=== PATIENT | male | born 1945 | race Caucasian/White ===

== ENCOUNTER 2019-01-07 11:10 | Inpatient (IN) | payer MEDICARE, OTHER ==
[~2019-01-07 11:10] MED LIST: LIDOCAINE 2% (SDV) 5 ML INJ
[2019-01-07 11:20] LABS: ADD MAN DIFF? NO
[2019-01-07 11:22] LABS: WHITE BLOOD COUNT 15.2 10^3/ul (4.8-10.8)
[2019-01-07 11:22] LABS: BASOPHIL # 0.1 10^3/ul (0.0-0.1); BASOPHILS % 0.4 % (0.0-2.0); EOSINOPHILS % 0.2 % (0.0-7.0); HEMATOCRIT 38.5 % (42.0-52.0); HEMOGLOBIN 12.3 g/dl (14.0-18.0); LYMPHOCYTES # 2.1 10^3/ul (0.8-2.9); LYMPHOCYTES % 13.8 % (15.0-51.0); MEAN CORPUSCULAR HEMOGLOBIN 28.8 pg (29.0-33.0); MEAN CORPUSCULAR HGB CONC 31.9 g/dl (32.0-37.0); MEAN CORPUSCULAR VOLUME 90.2 fl (82.0-101.0); MEAN PLATELET VOLUME 9.6 fl (7.4-10.4); MONOCYTE # 0.9 10^3/ul (0.3-0.9); NEUTROPHILS % 78.9 % (39.0-77.0); PLATELET COUNT 347 10^3/UL (140-415); RED BLOOD COUNT 4.27 10^6/ul (4.70-6.10); RED CELL DISTRIBUTION WIDTH 13.3 % (11.5-14.5)
[2019-01-07 11:38] LABS: HEMOGLOBIN A1C 5.7 % (0-5.9)
[2019-01-07 11:40] LABS: ANION GAP 13 (5-13); BLOOD UREA NITROGEN 23 mg/dl (7-20); CALCIUM 9.8 mg/dl (8.4-10.2); CARBON DIOXIDE 26 mmol/L (21-31); CHLORIDE 104 mmol/L (97-110); CHOL/HDL RATIO 4.7 RATIO; CHOLESTEROL 193 mg/dl (100-200); CREATINE KINASE 144 IU/L (23-200); CREATININE 1.19 mg/dl (0.61-1.24); GLUCOSE 192 mg/dl (70-220); HDL CHOLESTEROL 41 mg/dl (31-75); LDL CHOLESTEROL,CALCULATED 118 mg/dl; POTASSIUM 3.4 mmol/L (3.5-5.1); SODIUM 143 mmol/L (135-144); TRIGLYCERIDES 170 mg/dl (0-149)
[2019-01-07 11:41] LABS: ETHANOL < 10.0 mg/dl (0-0)
[2019-01-07 11:45] LABS: INR 0.96; PROTIME 12.9 Sec (11.9-14.9)
[2019-01-07 11:46] LABS: PARTIAL THROMBOPLASTIN TIME 23.3 Sec (23.0-35.0)
[2019-01-07 11:52] LABS: CK INDEX 0.5; CK-MB 0.74 ng/ml (0.0-2.4); TROPONIN-I < 0.012 ng/ml (0.000-0.120)
[2019-01-07 12:20] LABS: ADD UMIC NO; UR ASCORBIC ACID NEGATIVE (NEGATIVE); UR BILIRUBIN (Dip) NEGATIVE (NEGATIVE); UR BLOOD (Dip) NEGATIVE (NEGATIVE); UR CLARITY CLEAR (CLEAR); UR COLOR STRAW (YELLOW); UR GLUCOSE (Dip) 2+ mg/dL (NEGATIVE); UR KETONES (Dip) NEGATIVE (NEGATIVE); UR LEUKOCYTE ESTERASE (Dip) NEGATIVE Leu/ul (NEGATIVE); UR NITRITE (Dip) NEGATIVE (NEGATIVE); UR SPECIFIC GRAVITY (Dip) 1.014 (1.003-1.030); UR TOTAL PROTEIN (Dip) NEGATIVE (NEGATIVE); UR UROBILINOGEN (Dip) NEGATIVE (NEGATIVE)
[2019-01-07] MEDS ORDERED: SUCCINYLCHOLINE CHLORIDE 100 MG/5 ML SYG IV (12:23)
[2019-01-07] MEDS ORDERED: ETOMIDATE 20 MG INJ IV (12:23)
[2019-01-07] MEDS: niCARdipine-NS 0.1MG/ML DRIP 200 ML IV (12:33)
[2019-01-07] MEDS: DESMOPRESSIN 22.5 MCG in SOD CHLORIDE 0.9% 50 ML IVPB (13:00)
[2019-01-07] MEDS ORDERED: NACL 0.9% 3 ML SYG IV (13:00)
[2019-01-07] MEDS ORDERED: HYDROmorphONE 0.5 MG/0.5 ML SYG IV ×4 (13:00→17:30)
[2019-01-07] MEDS: HYDROmorphONE 1 MG/ML SYG IV ×2 (13:04→18:24)
[2019-01-07] MEDS: MANNITOL 25% 50 ML INJ IV* (13:14)
[2019-01-07 13:33] LABS: AMPHETAMINE/METHAMPHETAMINE Negative (NEGATIVE); BARBITURATES Negative (NEGATIVE); BENZODIAZEPINES Negative (NEGATIVE); CANNABINOIDS Negative (NEGATIVE); COCAINE Negative (NEGATIVE); OPIATES Negative (NEGATIVE)
[2019-01-07 14:30] LABS: TYPE AND SCREEN 1
[2019-01-07] MEDS ORDERED: LORAZEPAM 2 MG INJ IV ×2 (15:30→17:30)
[2019-01-07] MEDS: LIDOCAINE 1% (MPF) 30 ML INJ (15:46)
[2019-01-07] MEDS: THROMBIN (BOVINE) 5,000 UNIT VIAL TP ×4 (15:46→16:51)
[2019-01-07] MEDS: POLYMYXIN/BACITRACIN 1L IRRIG (15:47)
[2019-01-07] MEDS: BUPIVACAINE 0.5%/EPI (SDV) 30 ML INJ (15:47)
[2019-01-07] MEDS: GELATIN SIZE 100 SPONGE ×2 (15:47→16:40)
[2019-01-07] MEDS: LIDOCAINE 1%/EPI 30 ML INJ INJ (15:54)
[2019-01-07] MEDS ORDERED: CA CHLORIDE 10% 10 ML SYRINGE (16:15)
[2019-01-07] MEDS ORDERED: ROCURONIUM 50 MG INJ (16:15)
[2019-01-07] MEDS ORDERED: PROPOFOL 40 ML (16:15)
[2019-01-07] MEDS ORDERED: PROPOFOL 100 ML (16:15)
[2019-01-07] MEDS ORDERED: ALBUMIN HUMAN 25% 200 ML (16:15)
[2019-01-07] MEDS ORDERED: CA CHLORIDE (GM) 10% 10 ML INJ (16:15)
[2019-01-07] MEDS ORDERED: PHENYLephrine (100 MCG/ML) 5ML SYG (16:21)
[2019-01-07] MEDS: BACITRACIN/POLYMYXIN 28.35 GM OINT TOP (17:26)
[2019-01-07] MEDS ORDERED: DIPHENHYDRAMINE 50 MG INJ IV (17:30)
[2019-01-07] MEDS ORDERED: ONDANSETRON 4 MG INJ IV ×2 (17:30→18:00)
[2019-01-07] MEDS ORDERED: FENTAnyl 50 MCG/ML VIAL IV ×2 (17:30)
[2019-01-07] MEDS ORDERED: METOCLOPRAMIDE 10 MG INJ IV (17:30)
[2019-01-07] MEDS ORDERED: MIDAZOLAM 1 MG/ML 2 ML INJ IV (17:30)
[2019-01-07] MEDS ORDERED: IPRATROPIUM (NEB) 0.5 MG/2.5 ML AMP HHN (17:30)
[2019-01-07] MEDS ORDERED: LEVALBUTEROL (NEB) 1.25 MG/0.5 ML AMP HHN (17:30)
[2019-01-07] MEDS ORDERED: NALOXONE (0.4 MG/ML) INJ IV (18:00)
[2019-01-07] MEDS: hydrALAzine 20 MG INJ IV (18:37)
[2019-01-07] MEDS: LABETALOL HCL 20MG INJ IV ×2 (18:44→19:01)
[2019-01-07] MEDS: CEFAZOLIN 1 GM/50 ML (PMX) 50 ML IVPB (18:58)
[2019-01-07] MEDS: PROPOFOL 100 ML IV ×2 (19:02→20:03)
[2019-01-07 19:41] LABS: AADO2 Arterial 288.1 mmHg (7.0-24.0); Arterial Base Excess -4.5 mmol/L (-3.0-3); Arterial Blood Gas Oxygen Sat 98.5 mmHG (95.0-100.0); Arterial COHb 0.2 % (0.0-3.0); Arterial Fraction of Oxyhgb 97.8 % (93.0-99.0); Arterial HCO3 21.2 mmol/L (22.0-26.0); Arterial MetHb 0.5 % (0.0-1.5); Arterial pCO2 41.4 mmhg (35-45); MODE VENT - AC; Site A-Line
[2019-01-07] MEDS: LEVETIRACETAM 500 MG (PMX) 100 ML IVPB ×2 (19:57→23:00)
[2019-01-07] MEDS: NS + KCL 20 MEQ 1,000 ML IV (21:24)
[2019-01-07] MEDS: niCARdipine 25 MG in SOD CHLORIDE 0.9% 240 ML IV (21:25)
[2019-01-07 21:55] LABS: ANION GAP 13 (5-13); BLOOD UREA NITROGEN 21 mg/dl (7-20); CALCIUM 10.3 mg/dl (8.4-10.2); CARBON DIOXIDE 22 mmol/L (21-31); CHLORIDE 109 mmol/L (97-110); CREATININE 1.29 mg/dl (0.61-1.24); GLUCOSE 124 mg/dl (70-220); POTASSIUM 4.2 mmol/L (3.5-5.1); SODIUM 144 mmol/L (135-144)
[2019-01-07] MEDS: NACL 3% 500 ML IV (22:07)
[2019-01-07] MEDS: FENTAnyl (DRIP) 1000 mcg/100mL 100 ML IV (22:09)
[2019-01-07] MEDS: NEOMYC/POLYMYX/BACIT 30 GM OINT TOP (22:09)
[2019-01-07 22:37] LABS: AADO2 Arterial 199.8 mmHg (7.0-24.0); Arterial Base Excess -2.8 mmol/L (-3.0-3); Arterial Blood Gas Oxygen Sat 97.9 mmHG (95.0-100.0); Arterial COHb 0.3 % (0.0-3.0); Arterial Fraction of Oxyhgb 97.1 % (93.0-99.0); Arterial HCO3 20.6 mmol/L (22.0-26.0); Arterial MetHb 0.5 % (0.0-1.5); Arterial pCO2 30.5 mmhg (35-45); MODE VENT - AC; Site A-Line
[2019-01-08] MEDS: niCARdipine 50 MG in SOD CHLORIDE 0.9% 480 ML IV (00:29)
[2019-01-08] MEDS: PROPOFOL 100 ML IV ×3 (02:24→16:41)
[2019-01-08] MEDS: CEFAZOLIN 1 GM/50 ML (PMX) 50 ML IVPB ×2 (02:24→08:39)
[2019-01-08 04:47] LABS: ABNORMAL IP MESSAGE 1; HEMATOCRIT 22.5 % (42.0-52.0); HEMOGLOBIN 7.5 g/dl (14.0-18.0); MEAN CORPUSCULAR HEMOGLOBIN 29.3 pg (29.0-33.0); MEAN CORPUSCULAR HGB CONC 33.3 g/dl (32.0-37.0); MEAN CORPUSCULAR VOLUME 87.9 fl (82.0-101.0); MEAN PLATELET VOLUME 10.2 fl (7.4-10.4); PLATELET COUNT 215 10^3/UL (140-415); POSITIVE DIFF @See below; RED BLOOD COUNT 2.56 10^6/ul (4.70-6.10); RED CELL DISTRIBUTION WIDTH 13.7 % (11.5-14.5)
[2019-01-08 04:47] LABS: WHITE BLOOD COUNT 7.1 10^3/ul (4.8-10.8)
[2019-01-08 04:50] LABS: ADD MAN DIFF? YES
[2019-01-08 04:58] LABS: HEMOGLOBIN A1C 5.9 % (0-5.9)
[2019-01-08 05:12] LABS: ALANINE AMINOTRANSFERASE 19 IU/L (13-69); ALBUMIN 3.7 g/dl (3.3-4.9); ALBUMIN/GLOBULIN RATIO 1.54; ALKALINE PHOSPHATASE 34 IU/L (42-121); ANION GAP 13 (5-13); ASPARTATE AMINO TRANSFERASE 27 IU/L (15-46); BILIRUBIN,INDIRECT 0.2 mg/dl (0-1.1); BILIRUBIN,TOTAL 0.2 mg/dl (0.2-1.3); BLOOD UREA NITROGEN 20 mg/dl (7-20); CALCIUM 9.9 mg/dl (8.4-10.2); CARBON DIOXIDE 22 mmol/L (21-31); CHLORIDE 114 mmol/L (97-110); CREATININE 1.45 mg/dl (0.61-1.24); GLUCOSE 116 mg/dl (70-220); POTASSIUM 3.7 mmol/L (3.5-5.1); SODIUM 149 mmol/L (135-144); TOTAL PROTEIN 6.1 g/dl (6.1-8.1)
[2019-01-08] MEDS: PANTOPRAZOLE 40 MG INJ IV (05:31)
[2019-01-08 05:43] LABS: ADD MAN DIFF? NO
[2019-01-08 05:57] LABS: ABNORMAL IP MESSAGE 1; BASOPHILS % 0.2 % (0.0-2.0); HEMATOCRIT 22.6 % (42.0-52.0); HEMOGLOBIN 7.4 g/dl (14.0-18.0); LYMPHOCYTES # 0.4 10^3/ul (0.8-2.9); LYMPHOCYTES % 6.5 % (15.0-51.0); MEAN CORPUSCULAR HEMOGLOBIN 29.1 pg (29.0-33.0); MEAN CORPUSCULAR HGB CONC 32.7 g/dl (32.0-37.0); MEAN PLATELET VOLUME 10.1 fl (7.4-10.4); MONOCYTE # 0.4 10^3/ul (0.3-0.9); MONOCYTES % 5.3 % (0.0-11.0); NEUTROPHIL # 5.8 10^3/ul (1.6-7.5); NEUTROPHILS % 87.5 % (39.0-77.0); PLATELET COUNT 207 10^3/UL (140-415); POSITIVE DIFF @See below; RED BLOOD COUNT 2.54 10^6/ul (4.70-6.10); RED CELL DISTRIBUTION WIDTH 13.7 % (11.5-14.5)
[2019-01-08 05:57] LABS: WHITE BLOOD COUNT 6.7 10^3/ul (4.8-10.8)
[2019-01-08 06:53] LABS: IMMEDIATE SPIN CROSSMATCH 1 2
[2019-01-08 08:23] LABS: ACANTHOCYTES 1+ (0-0); ANISOCYTOSIS 1+ (0-0); BAND NEUTROPHILS #M 2.3 10^3/ul (0.0-0.6); BAND NEUTROPHILS % (M) 33 % (0-4); BURR CELLS 1+ (0-0); LYMPHOCYTES #M 0.4 10^3/ul (0.8-2.9); LYMPHOCYTES % (M) 6 % (15-51); MICROCYTOSIS 1+ (0-0); MONOCYTE #M 0.2 10^3/ul (0.3-0.9); MONOCYTES % (M) 3 % (0-11); OVALOCYTES 1+ (0-0); PLATELET ESTIMATE NORMAL; POIKILOCYTOSIS 1+ (0-0); REACTIVE LYMPHOCYTES% (M) 1 % (0-0); SCHISTOCYTES 1+ (0-0); SEG NEUT #M 4.2 10^3/ul (1.6-7.5); SEGMENTED NEUTROPHILS (M) % 57 % (39-77); SMUDGE%M 1 % (0-0)
[2019-01-08 08:30] LABS: ANISOCYTOSIS 2+ (0-0); BAND NEUTROPHILS #M 2.1 10^3/ul (0.0-0.6); BAND NEUTROPHILS % (M) 32 % (0-4); BASOPHILS % (M) 1 % (0-2); EOSINOPHILS % (M) 1 % (0-7); LYMPHOCYTES #M 0.1 10^3/ul (0.8-2.9); LYMPHOCYTES % (M) 2 % (15-51); MICROCYTOSIS 2+ (0-0); MONOCYTES % (M) 1 % (0-11); OVALOCYTES 1+ (0-0); PLATELET ESTIMATE NORMAL; POIKILOCYTOSIS 1+ (0-0); SEG NEUT #M 4.4 10^3/ul (1.6-7.5); SEGMENTED NEUTROPHILS (M) % 63 % (39-77); SMUDGE%M 5 % (0-0)
[2019-01-08] MEDS: NEOMYC/POLYMYX/BACIT 30 GM OINT TOP ×2 (08:31→20:52)
[2019-01-08] MEDS: HYDROmorphONE 0.5 MG/0.5 ML SYG IV ×2 (08:45→15:44)
[2019-01-08] MEDS: LEVETIRACETAM 500 MG (PMX) 100 ML IVPB ×2 (09:00→20:52)
[2019-01-08 14:23] LABS: HEMATOCRIT 29.2 % (42.0-52.0); HEMOGLOBIN 9.8 g/dl (14.0-18.0); MEAN CORPUSCULAR HEMOGLOBIN 29.1 pg (29.0-33.0); MEAN CORPUSCULAR HGB CONC 33.6 g/dl (32.0-37.0); MEAN CORPUSCULAR VOLUME 86.6 fl (82.0-101.0); MEAN PLATELET VOLUME 10.5 fl (7.4-10.4); PLATELET COUNT 181 10^3/UL (140-415); POSITIVE DIFF @See below; RED BLOOD COUNT 3.37 10^6/ul (4.70-6.10); RED CELL DISTRIBUTION WIDTH 15.2 % (11.5-14.5)
[2019-01-08 14:23] LABS: WHITE BLOOD COUNT 5.9 10^3/ul (4.8-10.8)
[2019-01-08 14:25] LABS: ADD MAN DIFF? YES
[2019-01-08] MEDS: NS + KCL 20 MEQ 1,000 ML IV ×2 (14:28→20:51)
[2019-01-08 14:38] LABS: SODIUM 149 mmol/L (135-144)
[2019-01-08 15:31] LABS: ANISOCYTOSIS 2+ (0-0); BAND NEUTROPHILS % (M) 17 % (0-4); GIANT THROMBO% (M) 1 % (0-0); LYMPHOCYTES #M 0.7 10^3/ul (0.8-2.9); LYMPHOCYTES % (M) 13 % (15-51); MICROCYTOSIS 2+ (0-0); MONOCYTE #M 0.1 10^3/ul (0.3-0.9); MONOCYTES % (M) 2 % (0-11); PLATELET ESTIMATE NORMAL; POIKILOCYTOSIS 1+ (0-0); SEG NEUT #M 4.1 10^3/ul (1.6-7.5); SEGMENTED NEUTROPHILS (M) % 68 % (39-77); SMUDGE%M 6 % (0-0)
[2019-01-08] MEDS: hydrALAzine 20 MG INJ IV (17:24)
[2019-01-08 18:12] LABS: SODIUM 146 mmol/L (135-144)
[2019-01-08] MEDS: ACETAMINOPHEN 650MG/20.3ML CUP NGT (21:19)
[2019-01-08] MEDS: FENTAnyl (DRIP) 1000 mcg/100mL 100 ML IV (23:00)
[2019-01-09 00:35] LABS: SODIUM 146 mmol/L (135-144)
[2019-01-09 04:48] LABS: ADD MAN DIFF? NO
[2019-01-09 04:53] LABS: BASOPHILS % 0.3 % (0.0-2.0); EOSINOPHILS % 0.3 % (0.0-7.0); HEMATOCRIT 28.5 % (42.0-52.0); HEMOGLOBIN 9.4 g/dl (14.0-18.0); LYMPHOCYTES # 1.1 10^3/ul (0.8-2.9); LYMPHOCYTES % 17.8 % (15.0-51.0); MEAN CORPUSCULAR HEMOGLOBIN 28.6 pg (29.0-33.0); MEAN CORPUSCULAR VOLUME 86.6 fl (82.0-101.0); MEAN PLATELET VOLUME 10.3 fl (7.4-10.4); MONOCYTE # 0.5 10^3/ul (0.3-0.9); MONOCYTES % 7.8 % (0.0-11.0); NEUTROPHIL # 4.5 10^3/ul (1.6-7.5); PLATELET COUNT 170 10^3/UL (140-415); RED BLOOD COUNT 3.29 10^6/ul (4.70-6.10); RED CELL DISTRIBUTION WIDTH 15.3 % (11.5-14.5)
[2019-01-09 04:53] LABS: WHITE BLOOD COUNT 6.1 10^3/ul (4.8-10.8)
[2019-01-09 05:22] LABS: ANION GAP 9 (5-13); BLOOD UREA NITROGEN 21 mg/dl (7-20); CALCIUM 9.1 mg/dl (8.4-10.2); CARBON DIOXIDE 20 mmol/L (21-31); CHLORIDE 118 mmol/L (97-110); CREATININE 1.26 mg/dl (0.61-1.24); GLUCOSE 135 mg/dl (70-220); PHOSPHORUS 1.9 mg/dl (2.5-4.9); POTASSIUM 3.4 mmol/L (3.5-5.1); SODIUM 147 mmol/L (135-144)
[2019-01-09] MEDS: PANTOPRAZOLE 40 MG INJ IV (05:55)
[2019-01-09] MEDS: PROPOFOL 100 ML IV ×3 (05:55→21:27)
[2019-01-09] MEDS: NS + KCL 20 MEQ 1,000 ML IV ×2 (06:30→20:20)
[2019-01-09 08:31] LABS: Arterial Base Excess -2.6 mmol/L (-3.0-3); Arterial Blood Gas Oxygen Sat 98.3 mmHG (95.0-100.0); Arterial COHb 0.2 % (0.0-3.0); Arterial Fraction of Oxyhgb 97.8 % (93.0-99.0); Arterial HCO3 19.5 mmol/L (22.0-26.0); Arterial MetHb 0.3 % (0.0-1.5); Arterial pCO2 25.5 mmhg (35-45); MODE VENT - AC; Site A-Line
[2019-01-09] MEDS: LEVETIRACETAM 500 MG (PMX) 100 ML IVPB ×2 (09:32→20:20)
[2019-01-09] MEDS: NEOMYC/POLYMYX/BACIT 30 GM OINT TOP ×2 (09:32→20:20)
[2019-01-09] MEDS: POTASSIUM PHOSPHATE 20 MEQ in SOD CHLORIDE 0.9% 250 ML IVPB (11:35)
[2019-01-09] MEDS: HYDROmorphONE 0.5 MG/0.5 ML SYG IV ×2 (12:14→21:24)
[2019-01-09 12:43] LABS: SODIUM 147 mmol/L (135-144)
[2019-01-09] MEDS: HYDROCODONE/APAP (5/325) TAB PO (16:14)
[2019-01-09] MEDS: FENTAnyl (DRIP) 1000 mcg/100mL 100 ML IV (19:13)
[2019-01-09 19:40] LABS: SODIUM 146 mmol/L (135-144)
[2019-01-10] MEDS: HYDROCODONE/APAP (5/325) TAB PO ×2 (01:02→18:06)
[2019-01-10] MEDS: PROPOFOL 100 ML IV ×4 (02:56→22:45)
[2019-01-10 04:52] LABS: ADD MAN DIFF? NO
[2019-01-10 05:01] LABS: BASOPHILS % 0.3 % (0.0-2.0); EOSINOPHILS # 0.1 10^3/ul (0.0-0.5); EOSINOPHILS % 1.5 % (0.0-7.0); HEMATOCRIT 27.2 % (42.0-52.0); LYMPHOCYTES # 1.3 10^3/ul (0.8-2.9); LYMPHOCYTES % 22.1 % (15.0-51.0); MEAN CORPUSCULAR HEMOGLOBIN 28.8 pg (29.0-33.0); MEAN CORPUSCULAR HGB CONC 33.1 g/dl (32.0-37.0); MEAN CORPUSCULAR VOLUME 87.2 fl (82.0-101.0); MEAN PLATELET VOLUME 10.6 fl (7.4-10.4); MONOCYTE # 0.4 10^3/ul (0.3-0.9); MONOCYTES % 6.1 % (0.0-11.0); NEUTROPHIL # 4.1 10^3/ul (1.6-7.5); NEUTROPHILS % 69.7 % (39.0-77.0); PLATELET COUNT 171 10^3/UL (140-415); RED BLOOD COUNT 3.12 10^6/ul (4.70-6.10); RED CELL DISTRIBUTION WIDTH 15.3 % (11.5-14.5)
[2019-01-10 05:01] LABS: WHITE BLOOD COUNT 5.9 10^3/ul (4.8-10.8)
[2019-01-10] MEDS: PANTOPRAZOLE 40 MG INJ IV (05:01)
[2019-01-10] MEDS: NS + KCL 20 MEQ 1,000 ML IV ×3 (05:01→21:31)
[2019-01-10 05:32] LABS: ANION GAP 10 (5-13); BLOOD UREA NITROGEN 19 mg/dl (7-20); CALCIUM 8.7 mg/dl (8.4-10.2); CARBON DIOXIDE 20 mmol/L (21-31); CHLORIDE 117 mmol/L (97-110); CREATININE 1.02 mg/dl (0.61-1.24); GLUCOSE 141 mg/dl (70-220); POTASSIUM 3.6 mmol/L (3.5-5.1); SODIUM 147 mmol/L (135-144)
[2019-01-10 08:03] LABS: AADO2 Arterial 80.6 mmHg (7.0-24.0); Arterial Base Excess -3.6 mmol/L (-3.0-3); Arterial Blood Gas Oxygen Sat 97.3 mmHG (95.0-100.0); Arterial COHb 0.2 % (0.0-3.0); Arterial Fraction of Oxyhgb 96.8 % (93.0-99.0); Arterial HCO3 18.9 mmol/L (22.0-26.0); Arterial MetHb 0.3 % (0.0-1.5); Arterial pCO2 25.7 mmhg (35-45); MODE VENT - AC; Site A-Line
[2019-01-10] MEDS: LEVETIRACETAM 500 MG (PMX) 100 ML IVPB ×2 (09:16→21:14)
[2019-01-10] MEDS: NEOMYC/POLYMYX/BACIT 30 GM OINT TOP ×2 (09:16→21:14)
[2019-01-10] MEDS: HYDROmorphONE 0.5 MG/0.5 ML SYG IV ×2 (13:30→22:38)
[2019-01-10] MEDS: FENTAnyl (DRIP) 1000 mcg/100mL 100 ML IV (14:42)
[2019-01-10] MEDS: ACETAMINOPHEN 650MG/20.3ML CUP NGT (19:32)
[2019-01-11] MEDS: HYDROCODONE/APAP (5/325) TAB PO (00:47)
[2019-01-11] MEDS: HYDROmorphONE 0.5 MG/0.5 ML SYG IV ×3 (00:48→02:55)
[2019-01-11] MEDS: niCARdipine 50 MG in SOD CHLORIDE 0.9% 480 ML IV (00:54)
[2019-01-11] MEDS: PROPOFOL 100 ML IV ×2 (03:20→13:55)
[2019-01-11] MEDS: FENTAnyl (DRIP) 1000 mcg/100mL 100 ML IV ×2 (04:30→17:25)
[2019-01-11 05:22] LABS: WHITE BLOOD COUNT 3.5 10^3/ul (4.8-10.8)
[2019-01-11 05:22] LABS: ABNORMAL IP MESSAGE 1; HEMATOCRIT 30.2 % (42.0-52.0); HEMOGLOBIN 9.6 g/dl (14.0-18.0); MEAN CORPUSCULAR HEMOGLOBIN 28.7 pg (29.0-33.0); MEAN CORPUSCULAR HGB CONC 31.8 g/dl (32.0-37.0); MEAN CORPUSCULAR VOLUME 90.1 fl (82.0-101.0); MEAN PLATELET VOLUME 10.6 fl (7.4-10.4); PLATELET COUNT 173 10^3/UL (140-415); POSITIVE DIFF @See below; RED BLOOD COUNT 3.35 10^6/ul (4.70-6.10); RED CELL DISTRIBUTION WIDTH 14.9 % (11.5-14.5)
[2019-01-11] MEDS: PANTOPRAZOLE 40 MG INJ IV (05:31)
[2019-01-11 05:44] LABS: ADD MAN DIFF? YES
[2019-01-11 05:57] LABS: ANION GAP 10 (5-13); BLOOD UREA NITROGEN 20 mg/dl (7-20); CALCIUM 8.2 mg/dl (8.4-10.2); CARBON DIOXIDE 19 mmol/L (21-31); CHLORIDE 115 mmol/L (97-110); CREATININE 1.21 mg/dl (0.61-1.24); GLUCOSE 110 mg/dl (70-220); MAGNESIUM 1.7 mg/dl (1.7-2.5); PHOSPHORUS 5.4 mg/dl (2.5-4.9); SODIUM 144 mmol/L (135-144)
[2019-01-11] MEDS: NS + KCL 20 MEQ 1,000 ML IV ×2 (06:57→16:44)
[2019-01-11 07:34] LABS: ANISOCYTOSIS 2+ (0-0); BAND NEUTROPHILS #M 0.7 10^3/ul (0.0-0.6); BAND NEUTROPHILS % (M) 22 % (0-4); BASOPHILS % (M) 2 % (0-2); EOSINOPHILS % (M) 2 % (0-7); ERYTHROBLAST% (NRBC) (M) 1 % (0-0); GIANT THROMBO% (M) 2 % (0-0); LYMPHOCYTES #M 0.7 10^3/ul (0.8-2.9); LYMPHOCYTES % (M) 22 % (15-51); METAMYELOCYTES %M 2 % (0-0); MICROCYTOSIS 2+ (0-0); MONOCYTE #M 0.4 10^3/ul (0.3-0.9); MONOCYTES % (M) 14 % (0-11); MYELOCYTES % (M) 2 % (0-0); PLATELET ESTIMATE NORMAL; POIKILOCYTOSIS 2+ (0-0); POLYCHROMASIA 3+ (0-0); REACTIVE LYMPHOCYTES #M 0.7 10^3/ul (0.0-0.0); REACTIVE LYMPHOCYTES% (M) 20 % (0-0); SEG NEUT #M 0.5 10^3/ul (1.6-7.5); SEGMENTED NEUTROPHILS (M) % 14 % (39-77); SMUDGE%M 12 % (0-0)
[2019-01-11] MEDS: LEVETIRACETAM 500 MG (PMX) 100 ML IVPB ×2 (08:07→20:04)
[2019-01-11] MEDS: NEOMYC/POLYMYX/BACIT 30 GM OINT TOP ×2 (08:09→20:04)
[2019-01-11] MEDS: SOD CHLORIDE 0.9% 500 ML IV ×2 (10:30→15:29)
[2019-01-11] MEDS: AZTREONAM 2 GM in SOD CHLORIDE 0.9% 100 ML IVPB ×3 (12:07→22:08)
[2019-01-11] MEDS: FUROSEMIDE 40 MG INJ IV (20:04)
[2019-01-12] MEDS: PROPOFOL 100 ML IV ×2 (00:40→18:12)
[2019-01-12] MEDS: NS + KCL 20 MEQ 1,000 ML IV (03:00)
[2019-01-12] MEDS: PANTOPRAZOLE 40 MG INJ IV (05:29)
[2019-01-12] MEDS: AZTREONAM 2 GM in SOD CHLORIDE 0.9% 100 ML IVPB ×3 (05:30→21:30)
[2019-01-12] MEDS: HYDROmorphONE 0.5 MG/0.5 ML SYG IV ×4 (05:30→18:12)
[2019-01-12 05:45] LABS: WHITE BLOOD COUNT 8.1 10^3/ul (4.8-10.8)
[2019-01-12 05:45] LABS: ABNORMAL IP MESSAGE 1; HEMATOCRIT 30.7 % (42.0-52.0); HEMOGLOBIN 9.7 g/dl (14.0-18.0); MEAN CORPUSCULAR HEMOGLOBIN 29.1 pg (29.0-33.0); MEAN CORPUSCULAR HGB CONC 31.6 g/dl (32.0-37.0); MEAN CORPUSCULAR VOLUME 92.2 fl (82.0-101.0); MEAN PLATELET VOLUME 10.9 fl (7.4-10.4); PLATELET COUNT 203 10^3/UL (140-415); POSITIVE DIFF @See below; RED BLOOD COUNT 3.33 10^6/ul (4.70-6.10); RED CELL DISTRIBUTION WIDTH 15.2 % (11.5-14.5)
[2019-01-12 06:06] LABS: ANION GAP 10 (5-13); BLOOD UREA NITROGEN 33 mg/dl (7-20); CARBON DIOXIDE 21 mmol/L (21-31); CHLORIDE 114 mmol/L (97-110); CREATININE 1.29 mg/dl (0.61-1.24); GLUCOSE 122 mg/dl (70-220); POTASSIUM 5.4 mmol/L (3.5-5.1); SODIUM 145 mmol/L (135-144)
[2019-01-12 06:11] LABS: ADD MAN DIFF? YES
[2019-01-12] MEDS: LEVETIRACETAM 500 MG (PMX) 100 ML IVPB (07:59)
[2019-01-12] MEDS: FENTAnyl (DRIP) 1000 mcg/100mL 100 ML IV ×2 (08:05→22:12)
[2019-01-12] MEDS: NEOMYC/POLYMYX/BACIT 30 GM OINT TOP ×2 (08:07→21:28)
[2019-01-12 08:14] LABS: ANISOCYTOSIS 1+ (0-0); BAND NEUTROPHILS #M 3.8 10^3/ul (0.0-0.6); BAND NEUTROPHILS % (M) 47 % (0-4); ERYTHROBLAST% (NRBC) (M) 1 % (0-0); GIANT THROMBO% (M) 1 % (0-0); LYMPHOCYTES #M 0.5 10^3/ul (0.8-2.9); LYMPHOCYTES % (M) 7 % (15-51); METAMYELOCYTES #M 0.9 10^3/ul (0.0-0.0); METAMYELOCYTES %M 12 % (0-0); MICROCYTOSIS 1+ (0-0); MONOCYTE #M 0.5 10^3/ul (0.3-0.9); MONOCYTES % (M) 7 % (0-11); MYELOCYTES #M 0.8 10^3/ul (0.0-0.0); MYELOCYTES % (M) 11 % (0-0); PLATELET ESTIMATE NORMAL; POIKILOCYTOSIS 1+ (0-0); POLYCHROMASIA 1+ (0-0); PROMYELOCYTES % (M) 1 % (0-0); SEG NEUT #M 1.5 10^3/ul (1.6-7.5); SEGMENTED NEUTROPHILS (M) % 15 % (39-77); SMUDGE%M 20 % (0-0)
[2019-01-12] MEDS: SOD CHLORIDE 0.45% 1,000 ML IV (10:00)
[2019-01-12] MEDS ORDERED: VANCOMYCIN IV PER PHARMACY XX (11:00)
[2019-01-12] MEDS: VANCOMYCIN HCL 1.25 GM in SOD CHLORIDE 0.9% 250 ML IVPB (11:04)
[2019-01-12] MEDS: hydrALAzine 20 MG INJ IV (15:04)
[2019-01-12] MEDS: LORAZEPAM 2 MG INJ IV (16:36)
[2019-01-12] MEDS: LEVETIRACETAM IV 750 MG in DEXTROSE 5% 100 ML IVPB (21:30)
[2019-01-12] MEDS: VANCOMYCIN 500 MG (PMX) 100 ML IVPB (22:13)
[2019-01-12] MEDS: niCARdipine 50 MG in SOD CHLORIDE 0.9% 480 ML IV (23:15)
[2019-01-13] MEDS: HYDROmorphONE 0.5 MG/0.5 ML SYG IV (00:47)
[2019-01-13] MEDS ORDERED: LORAZEPAM 2 MG INJ (01:18)
[2019-01-13] MEDS: LORAZEPAM 2 MG INJ IV (01:20)
[2019-01-13] MEDS: PROPOFOL 100 ML IV ×4 (01:27→23:16)
[2019-01-13] MEDS: MIDAZOLAM (DRIP) 50 mg/50 mL 50 ML IV ×5 (02:00→23:23)
[2019-01-13 02:49] LABS: AADO2 Arterial 555.4 mmHg (7.0-24.0); Arterial Base Excess -6.1 mmol/L (-3.0-3); Arterial Blood Gas Oxygen Sat 98.3 mmHG (95.0-100.0); Arterial COHb 0.3 % (0.0-3.0); Arterial Fraction of Oxyhgb 97.8 % (93.0-99.0); Arterial HCO3 18.9 mmol/L (22.0-26.0); Arterial MetHb 0.2 % (0.0-1.5); Arterial pCO2 35.5 mmhg (35-45); MODE VENT - AC; Site A-Line
[2019-01-13] MEDS: AZTREONAM 2 GM in SOD CHLORIDE 0.9% 100 ML IVPB ×3 (05:17→22:14)
[2019-01-13] MEDS: LANSOPRAZOLE 30 MG CAP GTB (05:26)
[2019-01-13 05:36] LABS: ABNORMAL IP MESSAGE 1; HEMATOCRIT 26.3 % (42.0-52.0); HEMOGLOBIN 8.3 g/dl (14.0-18.0); MEAN CORPUSCULAR HEMOGLOBIN 28.9 pg (29.0-33.0); MEAN CORPUSCULAR HGB CONC 31.6 g/dl (32.0-37.0); MEAN CORPUSCULAR VOLUME 91.6 fl (82.0-101.0); MEAN PLATELET VOLUME 11.5 fl (7.4-10.4); NUCLEATED RED BLOOD CELLS% 0.3 /100WBC (0.0-0.0); PLATELET COUNT 196 10^3/UL (140-415); POSITIVE DIFF @See below; RED BLOOD COUNT 2.87 10^6/ul (4.70-6.10); RED CELL DISTRIBUTION WIDTH 15.3 % (11.5-14.5)
[2019-01-13 05:36] LABS: WHITE BLOOD COUNT 10.3 10^3/ul (4.8-10.8)
[2019-01-13 06:04] LABS: ANION GAP 7 (5-13); BLOOD UREA NITROGEN 47 mg/dl (7-20); CALCIUM 8.1 mg/dl (8.4-10.2); CARBON DIOXIDE 21 mmol/L (21-31); CHLORIDE 116 mmol/L (97-110); CREATININE 1.24 mg/dl (0.61-1.24); GLUCOSE 146 mg/dl (70-220); POTASSIUM 4.7 mmol/L (3.5-5.1); SODIUM 144 mmol/L (135-144)
[2019-01-13 06:22] LABS: ADD MAN DIFF? YES
[2019-01-13 09:15] LABS: BAND NEUTROPHILS #M 4.8 10^3/ul (0.0-0.6); BAND NEUTROPHILS % (M) 47 % (0-4); BASOPHIL #M 0.1 10^3/ul (0.0-0.0); BASOPHILS % (M) 1 % (0-2); EOSINOPHILS % (M) 1 % (0-7); GIANT THROMBO% (M) 8 % (0-0); LYMPHOCYTES #M 0.2 10^3/ul (0.8-2.9); LYMPHOCYTES % (M) 2 % (15-51); METAMYELOCYTES #M 0.1 10^3/ul (0.0-0.0); METAMYELOCYTES %M 1 % (0-0); MONOCYTE #M 0.1 10^3/ul (0.3-0.9); MONOCYTES % (M) 1 % (0-11); MYELOCYTES #M 1.1 10^3/ul (0.0-0.0); MYELOCYTES % (M) 11 % (0-0); OVALOCYTES 1+ (0-0); PLATELET ESTIMATE NORMAL; POIKILOCYTOSIS 1+ (0-0); SEG NEUT #M 4.2 10^3/ul (1.6-7.5); SEGMENTED NEUTROPHILS (M) % 36 % (39-77); SMUDGE%M 13 % (0-0); TEAR DROP CELLS 1+ (0-0); TOXIC GRANULATION 1+ (0-0)
[2019-01-13] MEDS: LEVETIRACETAM IV 750 MG in DEXTROSE 5% 100 ML IVPB ×2 (10:29→21:34)
[2019-01-13] MEDS: NEOMYC/POLYMYX/BACIT 30 GM OINT TOP ×2 (10:30→21:34)
[2019-01-13] MEDS: FENTAnyl (DRIP) 1000 mcg/100mL 100 ML IV ×2 (11:25→23:22)
[2019-01-13] MEDS: VANCOMYCIN 500 MG (PMX) 100 ML IVPB ×2 (11:58→23:15)
[2019-01-14] MEDS: HYDROmorphONE 0.5 MG/0.5 ML SYG IV ×3 (00:41→04:08)
[2019-01-14] MEDS ORDERED: NITROGLYCERIN (SL) 0.4 MG TAB (01:39)
[2019-01-14] MEDS: MIDAZOLAM (DRIP) 50 mg/50 mL 50 ML IV ×4 (04:35→22:31)
[2019-01-14] MEDS: AZTREONAM 2 GM in SOD CHLORIDE 0.9% 100 ML IVPB ×3 (05:22→22:30)
[2019-01-14] MEDS: LANSOPRAZOLE 30 MG CAP GTB (05:22)
[2019-01-14] MEDS: PROPOFOL 100 ML IV ×3 (08:39→22:51)
[2019-01-14] MEDS: LEVETIRACETAM IV 750 MG in DEXTROSE 5% 100 ML IVPB (08:39)
[2019-01-14] MEDS: NEOMYC/POLYMYX/BACIT 30 GM OINT TOP ×2 (08:40→20:53)
[2019-01-14 09:42] LABS: WHITE BLOOD COUNT 9.9 10^3/ul (4.8-10.8)
[2019-01-14 09:42] LABS: ABNORMAL IP MESSAGE 1; ANION GAP 4 (5-13); BLOOD UREA NITROGEN 52 mg/dl (7-20); CALCIUM 8.2 mg/dl (8.4-10.2); CARBON DIOXIDE 22 mmol/L (21-31); CHLORIDE 118 mmol/L (97-110); CREATININE 1.05 mg/dl (0.61-1.24); GLUCOSE 129 mg/dl (70-220); HEMATOCRIT 25.2 % (42.0-52.0); HEMOGLOBIN 8.3 g/dl (14.0-18.0); MAGNESIUM 2.8 mg/dl (1.7-2.5); MEAN CORPUSCULAR HGB CONC 32.9 g/dl (32.0-37.0); MEAN CORPUSCULAR VOLUME 88.1 fl (82.0-101.0); NUCLEATED RED BLOOD CELLS% 0.6 /100WBC (0.0-0.0); PHOSPHORUS 1.9 mg/dl (2.5-4.9); PLATELET COUNT 278 10^3/UL (140-415); POSITIVE DIFF @See below; RED BLOOD COUNT 2.86 10^6/ul (4.70-6.10); RED CELL DISTRIBUTION WIDTH 15.4 % (11.5-14.5); SODIUM 144 mmol/L (135-144)
[2019-01-14 09:51] LABS: ADD MAN DIFF? YES
[2019-01-14 10:34] LABS: BASOPHILS % 0.2 % (0.0-2.0); EOSINOPHILS # 0.2 10^3/ul (0.0-0.5); EOSINOPHILS % 1.9 % (0.0-7.0); LYMPHOCYTES % 5.6 % (15.0-51.0); MONOCYTES % 4.4 % (0.0-11.0); NEUTROPHIL # 8.7 10^3/ul (1.6-7.5); NEUTROPHILS % 87.1 % (39.0-77.0); NUCLEATED RED BLOOD CELLS # 0.1 10^3/ul (0.0-0.0)
[2019-01-14 10:41] LABS: BAND NEUTROPHILS #M 3.8 10^3/ul (0.0-0.6); BAND NEUTROPHILS % (M) 39 % (0-4); LYMPHOCYTES # 0.9 10^3/ul (0.8-2.9); LYMPHOCYTES #M 0.8 10^3/ul (0.8-2.9); LYMPHOCYTES % (M) 9 % (15-51); SEG NEUT #M 5.3 10^3/ul (1.7-7.5); SEGMENTED NEUTROPHILS (M) % 50 % (39-77)
[2019-01-14 13:18] LABS: EOSINOPHILS % (M) 2 % (0-7); ERYTHROBLAST% (NRBC) (M) 2 % (0-0)
[2019-01-14] MEDS: VANCOMYCIN 750 MG (PMX) 250 ML IVPB ×2 (13:36→23:40)
[2019-01-14] MEDS: FENTAnyl (DRIP) 1000 mcg/100mL 100 ML IV (14:36)
[2019-01-14] MEDS: LEVETIRACETAM IV 750 MG in SOD CHLORIDE 0.9% 100 ML IV (20:53)
[2019-01-15] MEDS: FENTAnyl (DRIP) 1000 mcg/100mL 100 ML IV ×3 (00:29→23:24)
[2019-01-15 05:12] LABS: WHITE BLOOD COUNT 8.7 10^3/ul (4.8-10.8)
[2019-01-15 05:12] LABS: ABNORMAL IP MESSAGE 1; HEMATOCRIT 26.3 % (42.0-52.0); HEMOGLOBIN 8.6 g/dl (14.0-18.0); MEAN CORPUSCULAR HEMOGLOBIN 28.6 pg (29.0-33.0); MEAN CORPUSCULAR HGB CONC 32.7 g/dl (32.0-37.0); MEAN CORPUSCULAR VOLUME 87.4 fl (82.0-101.0); MEAN PLATELET VOLUME 10.9 fl (7.4-10.4); NUCLEATED RED BLOOD CELLS% 0.3 /100WBC (0.0-0.0); PLATELET COUNT 329 10^3/UL (140-415); POSITIVE DIFF @See below; RED BLOOD COUNT 3.01 10^6/ul (4.70-6.10); RED CELL DISTRIBUTION WIDTH 15.7 % (11.5-14.5)
[2019-01-15 05:14] LABS: ADD MAN DIFF? YES
[2019-01-15 05:48] LABS: ANION GAP 7 (5-13); BLOOD UREA NITROGEN 46 mg/dl (7-20); CALCIUM 8.3 mg/dl (8.4-10.2); CARBON DIOXIDE 20 mmol/L (21-31); CHLORIDE 119 mmol/L (97-110); CREATININE 1.02 mg/dl (0.61-1.24); GLUCOSE 134 mg/dl (70-220); POTASSIUM 3.9 mmol/L (3.5-5.1); SODIUM 146 mmol/L (135-144)
[2019-01-15] MEDS: MIDAZOLAM (DRIP) 50 mg/50 mL 50 ML IV ×2 (06:28→18:00)
[2019-01-15] MEDS: LANSOPRAZOLE 30 MG CAP GTB (06:28)
[2019-01-15] MEDS: AZTREONAM 2 GM in SOD CHLORIDE 0.9% 100 ML IVPB ×3 (06:28→21:32)
[2019-01-15] MEDS: PROPOFOL 100 ML IV ×4 (06:30→23:24)
[2019-01-15 08:25] LABS: ANISOCYTOSIS 1+ (0-0); BAND NEUTROPHILS #M 1.5 10^3/ul (0.0-0.6); BAND NEUTROPHILS % (M) 18 % (0-4); BURR CELLS 2+ (0-0); EOSINOPHILS % (M) 3 % (0-7); ERYTHROBLAST% (NRBC) (M) 1 % (0-0); GIANT THROMBO% (M) 2 % (0-0); LYMPHOCYTES #M 0.6 10^3/ul (0.8-2.9); LYMPHOCYTES % (M) 8 % (15-51); MONOCYTE #M 0.2 10^3/ul (0.3-0.9); MONOCYTES % (M) 3 % (0-11); MYELOCYTES #M 0.4 10^3/ul (0.0-0.0); MYELOCYTES % (M) 5 % (0-0); PLATELET ESTIMATE NORMAL; POIKILOCYTOSIS 1+ (0-0); POLYCHROMASIA 1+ (0-0); PROMYELOCYTES % (M) 1 % (0-0); REACTIVE LYMPHOCYTES% (M) 1 % (0-0); SEG NEUT #M 5.4 10^3/ul (1.6-7.5); SEGMENTED NEUTROPHILS (M) % 61 % (39-77); SMUDGE%M 32 % (0-0); TARGET CELLS 1+ (0-0); TEAR DROP CELLS 1+ (0-0)
[2019-01-15] MEDS: NEOMYC/POLYMYX/BACIT 30 GM OINT TOP ×2 (08:35→21:32)
[2019-01-15] MEDS: HYDROmorphONE 0.5 MG/0.5 ML SYG IV (08:35)
[2019-01-15] MEDS: LEVETIRACETAM IV 750 MG in SOD CHLORIDE 0.9% 100 ML IV ×2 (10:17→21:32)
[2019-01-15] MEDS: VANCOMYCIN 750 MG (PMX) 250 ML IVPB ×2 (12:15→23:15)
[2019-01-16] MEDS: MIDAZOLAM (DRIP) 50 mg/50 mL 50 ML IV ×4 (03:10→22:11)
[2019-01-16 05:03] LABS: AADO2 Arterial 426.5 mmHg (7.0-24.0); Arterial Base Excess -7.1 mmol/L (-3.0-3); Arterial Blood Gas Oxygen Sat 95.5 mmHG (95.0-100.0); Arterial COHb 0.3 % (0.0-3.0); Arterial Fraction of Oxyhgb 94.8 % (93.0-99.0); Arterial HCO3 21.8 mmol/L (22.0-26.0); Arterial MetHb 0.4 % (0.0-1.5); Arterial pCO2 59.2 mmhg (35-45); MODE VENT - AC; Site A-Line
[2019-01-16] MEDS: LANSOPRAZOLE 30 MG CAP GTB (05:07)
[2019-01-16] MEDS: AZTREONAM 2 GM in SOD CHLORIDE 0.9% 100 ML IVPB ×3 (05:07→22:10)
[2019-01-16] MEDS: PROPOFOL 100 ML IV ×4 (05:07→19:34)
[2019-01-16 05:38] LABS: WHITE BLOOD COUNT 10.5 10^3/ul (4.8-10.8)
[2019-01-16 05:38] LABS: ABNORMAL IP MESSAGE 1; HEMATOCRIT 28.4 % (42.0-52.0); HEMOGLOBIN 8.7 g/dl (14.0-18.0); MEAN CORPUSCULAR HEMOGLOBIN 28.7 pg (29.0-33.0); MEAN CORPUSCULAR HGB CONC 30.6 g/dl (32.0-37.0); MEAN CORPUSCULAR VOLUME 93.7 fl (82.0-101.0); MEAN PLATELET VOLUME 10.9 fl (7.4-10.4); NUCLEATED RED BLOOD CELLS% 0.4 /100WBC (0.0-0.0); PLATELET COUNT 356 10^3/UL (140-415); POSITIVE DIFF @See below; RED BLOOD COUNT 3.03 10^6/ul (4.70-6.10); RED CELL DISTRIBUTION WIDTH 16.7 % (11.5-14.5)
[2019-01-16 05:53] LABS: ANION GAP 5 (5-13); BLOOD UREA NITROGEN 58 mg/dl (7-20); CALCIUM 8.3 mg/dl (8.4-10.2); CARBON DIOXIDE 23 mmol/L (21-31); CHLORIDE 115 mmol/L (97-110); CREATININE 1.22 mg/dl (0.61-1.24); GLUCOSE 129 mg/dl (70-220); POTASSIUM 4.9 mmol/L (3.5-5.1); SODIUM 143 mmol/L (135-144)
[2019-01-16 06:07] LABS: ADD MAN DIFF? YES
[2019-01-16 09:05] LABS: ANISOCYTOSIS 1+ (0-0); BAND NEUTROPHILS #M 2.6 10^3/ul (0.0-0.6); BAND NEUTROPHILS % (M) 25 % (0-4); ERYTHROBLAST% (NRBC) (M) 2 % (0-0); GIANT THROMBO% (M) 1 % (0-0); LYMPHOCYTES #M 0.9 10^3/ul (0.8-2.9); LYMPHOCYTES % (M) 9 % (15-51); METAMYELOCYTES #M 0.2 10^3/ul (0.0-0.0); METAMYELOCYTES %M 2 % (0-0); MONOCYTE #M 0.2 10^3/ul (0.3-0.9); MONOCYTES % (M) 2 % (0-11); MYELOCYTES #M 0.6 10^3/ul (0.0-0.0); MYELOCYTES % (M) 6 % (0-0); PLASMA CELLS #M 0.2 10^3/ul (0.0-0.0); PLASMAC%(M) 2 % (0); PLATELET ESTIMATE NORMAL; POIKILOCYTOSIS 2+ (0-0); POLYCHROMASIA 1+ (0-0); PROMYELOCYTES #M 0.1 10^3/ul (0-0); PROMYELOCYTES % (M) 1 % (0-0); SEG NEUT #M 5.8 10^3/ul (1.6-7.5); SEGMENTED NEUTROPHILS (M) % 53 % (39-77); SMUDGE%M 46 % (0-0); TEAR DROP CELLS 1+ (0-0)
[2019-01-16] MEDS: LEVETIRACETAM IV 750 MG in SOD CHLORIDE 0.9% 100 ML IV ×2 (09:27→21:05)
[2019-01-16] MEDS: NEOMYC/POLYMYX/BACIT 30 GM OINT TOP ×2 (09:28→21:07)
[2019-01-16] MEDS: FENTAnyl (DRIP) 1000 mcg/100mL 100 ML IV ×2 (10:11→21:21)
[2019-01-16] MEDS: VANCOMYCIN 750 MG (PMX) 250 ML IVPB ×2 (11:15→23:23)
[2019-01-16 11:22] LABS: AADO2 Arterial 263.1 mmHg (7.0-24.0); Arterial Base Excess -3.4 mmol/L (-3.0-3); Arterial COHb 0.3 % (0.0-3.0); Arterial Fraction of Oxyhgb 95.4 % (93.0-99.0); Arterial HCO3 22.3 mmol/L (22.0-26.0); Arterial MetHb 0.3 % (0.0-1.5); Arterial pCO2 43.2 mmhg (35-45); MODE VENT - AC; Site PUL ART LINE
[2019-01-16 13:04] LABS: Arterial Base Excess -5.3 mmol/L (-3.0-3); Arterial COHb 0.3 % (0.0-3.0); Arterial Fraction of Oxyhgb 94.4 % (93.0-99.0); Arterial HCO3 20.8 mmol/L (22.0-26.0); Arterial MetHb 0.3 % (0.0-1.5); Arterial pCO2 43.2 mmhg (35-45); MODE VENT - PC; Site A-Line
[2019-01-16 22:38] LABS: VANCOMYCIN,TROUGH 16.8 ug/ml (10.0-20.0)
[2019-01-17] MEDS: ALBUMIN HUMAN 25% 100 ML IV (00:08)
[2019-01-17] MEDS: PROPOFOL 100 ML IV ×4 (00:47→22:47)
[2019-01-17] MEDS ORDERED: LABETALOL HCL 20MG INJ IV (02:00)
[2019-01-17] MEDS ORDERED: LABETALOL HCL 20MG INJ (02:01)
[2019-01-17 04:47] LABS: AADO2 Arterial 217.2 mmHg (7.0-24.0); Arterial Base Excess -6.2 mmol/L (-3.0-3); Arterial Blood Gas Oxygen Sat 98.8 mmHG (95.0-100.0); Arterial COHb 0.6 % (0.0-3.0); Arterial Fraction of Oxyhgb 97.3 % (93.0-99.0); Arterial HCO3 21.2 mmol/L (22.0-26.0); Arterial MetHb 0.9 % (0.0-1.5); Arterial pCO2 53.9 mmhg (35-45); MODE VENT - PC; Site A-Line
[2019-01-17 05:31] LABS: ABNORMAL IP MESSAGE 1; HEMATOCRIT 24.7 % (42.0-52.0); HEMOGLOBIN 7.7 g/dl (14.0-18.0); MEAN CORPUSCULAR HEMOGLOBIN 28.8 pg (29.0-33.0); MEAN CORPUSCULAR HGB CONC 31.2 g/dl (32.0-37.0); MEAN CORPUSCULAR VOLUME 92.5 fl (82.0-101.0); MEAN PLATELET VOLUME 11.4 fl (7.4-10.4); NUCLEATED RED BLOOD CELLS% 0.9 /100WBC (0.0-0.0); PLATELET COUNT 314 10^3/UL (140-415); POSITIVE DIFF @See below; RED BLOOD COUNT 2.67 10^6/ul (4.70-6.10); RED CELL DISTRIBUTION WIDTH 17.5 % (11.5-14.5)
[2019-01-17] MEDS: AZTREONAM 2 GM in SOD CHLORIDE 0.9% 100 ML IVPB ×3 (05:41→21:51)
[2019-01-17] MEDS: LANSOPRAZOLE 30 MG CAP GTB (05:41)
[2019-01-17 05:46] LABS: ADD MAN DIFF? YES
[2019-01-17 05:58] LABS: ANION GAP 12 (5-13); BLOOD UREA NITROGEN 65 mg/dl (7-20); CALCIUM 8.2 mg/dl (8.4-10.2); CARBON DIOXIDE 21 mmol/L (21-31); CHLORIDE 116 mmol/L (97-110); CREATININE 1.65 mg/dl (0.61-1.24); GLUCOSE 125 mg/dl (70-220); POTASSIUM 5.4 mmol/L (3.5-5.1); SODIUM 149 mmol/L (135-144)
[2019-01-17] MEDS: NEOMYC/POLYMYX/BACIT 30 GM OINT TOP ×2 (08:55→21:05)
[2019-01-17] MEDS: FENTAnyl (DRIP) 1000 mcg/100mL 100 ML IV ×2 (08:57→20:27)
[2019-01-17] MEDS: LEVETIRACETAM IV 750 MG in SOD CHLORIDE 0.9% 100 ML IV ×2 (09:46→21:05)
[2019-01-17 09:49] LABS: ANISOCYTOSIS 2+ (0-0); BAND NEUTROPHILS #M 2.2 10^3/ul (0.0-0.6); BAND NEUTROPHILS % (M) 17 % (0-4); ERYTHROBLAST% (NRBC) (M) 1 % (0-0); LYMPHOCYTES #M 1.4 10^3/ul (0.8-2.9); LYMPHOCYTES % (M) 11 % (15-51); METAMYELOCYTES #M 0.1 10^3/ul (0.0-0.0); METAMYELOCYTES %M 1 % (0-0); MICROCYTOSIS 1+ (0-0); MONOCYTE #M 0.7 10^3/ul (0.3-0.9); MONOCYTES % (M) 6 % (0-11); MYELOCYTES #M 0.3 10^3/ul (0.0-0.0); MYELOCYTES % (M) 3 % (0-0); PLATELET ESTIMATE NORMAL; POIKILOCYTOSIS 3+ (0-0); POLYCHROMASIA 3+ (0-0); PROMYELOCYTES #M 0.1 10^3/ul (0-0); PROMYELOCYTES % (M) 1 % (0-0); ROULEAU 1+ (0-0); SEG NEUT #M 8.2 10^3/ul (1.6-7.5); SEGMENTED NEUTROPHILS (M) % 61 % (39-77); SMUDGE%M 4 % (0-0)
[2019-01-17] MEDS: VANCOMYCIN 750 MG (PMX) 250 ML IVPB ×2 (11:15→23:06)
[2019-01-18 04:53] LABS: ADD MAN DIFF? NO
[2019-01-18 04:55] LABS: ABNORMAL IP MESSAGE 1; BASOPHILS % 0.2 % (0.0-2.0); EOSINOPHILS # 0.1 10^3/ul (0.0-0.5); EOSINOPHILS % 0.8 % (0.0-7.0); HEMATOCRIT 23.1 % (42.0-52.0); HEMOGLOBIN 7.1 g/dl (14.0-18.0); LYMPHOCYTES # 0.5 10^3/ul (0.8-2.9); LYMPHOCYTES % 4.3 % (15.0-51.0); MEAN CORPUSCULAR HEMOGLOBIN 28.4 pg (29.0-33.0); MEAN CORPUSCULAR HGB CONC 30.7 g/dl (32.0-37.0); MEAN CORPUSCULAR VOLUME 92.4 fl (82.0-101.0); MEAN PLATELET VOLUME 10.9 fl (7.4-10.4); MONOCYTE # 0.6 10^3/ul (0.3-0.9); MONOCYTES % 4.6 % (0.0-11.0); NEUTROPHIL # 9.9 10^3/ul (1.6-7.5); NEUTROPHILS % 80.5 % (39.0-77.0); NUCLEATED RED BLOOD CELLS # 0.1 10^3/ul (0.0-0.0); NUCLEATED RED BLOOD CELLS% 0.8 /100WBC (0.0-0.0); PLATELET COUNT 289 10^3/UL (140-415); POSITIVE DIFF @See below; RED CELL DISTRIBUTION WIDTH 17.9 % (11.5-14.5)
[2019-01-18 04:55] LABS: WHITE BLOOD COUNT 12.2 10^3/ul (4.8-10.8)
[2019-01-18 05:25] LABS: ANION GAP 12 (5-13); BLOOD UREA NITROGEN 88 mg/dl (7-20); CARBON DIOXIDE 20 mmol/L (21-31); CHLORIDE 117 mmol/L (97-110); CREATININE 2.52 mg/dl (0.61-1.24); GLUCOSE 128 mg/dl (70-220); MAGNESIUM 3.1 mg/dl (1.7-2.5); SODIUM 149 mmol/L (135-144)
[2019-01-18] MEDS: LANSOPRAZOLE 30 MG CAP GTB (05:26)
[2019-01-18] MEDS: ACETAMINOPHEN 650MG/20.3ML CUP NGT ×3 (05:30→18:24)
[2019-01-18] MEDS: AZTREONAM 2 GM in SOD CHLORIDE 0.9% 100 ML IVPB ×3 (05:57→21:56)
[2019-01-18] MEDS: PROPOFOL 100 ML IV ×4 (06:06→21:22)
[2019-01-18] MEDS: FENTAnyl (DRIP) 1000 mcg/100mL 100 ML IV ×2 (07:18→18:58)
[2019-01-18 08:09] LABS: Arterial Base Excess -8.1 mmol/L (-3.0-3); Arterial Blood Gas Oxygen Sat 95.6 mmHG (95.0-100.0); Arterial COHb 0.8 % (0.0-3.0); Arterial Fraction of Oxyhgb 94.3 % (93.0-99.0); Arterial HCO3 19.4 mmol/L (22.0-26.0); Arterial MetHb 0.6 % (0.0-1.5); Arterial pCO2 49.8 mmhg (35-45); MODE VENT - PC; Site A-Line
[2019-01-18] MEDS: NEOMYC/POLYMYX/BACIT 30 GM OINT TOP ×2 (08:50→21:27)
[2019-01-18] MEDS: LEVETIRACETAM IV 750 MG in SOD CHLORIDE 0.9% 100 ML IV ×2 (09:33→21:28)
[2019-01-18 10:04] LABS: ANISOCYTOSIS 2+ (0-0); BAND NEUTROPHILS #M 1.5 10^3/ul (0.0-0.6); BAND NEUTROPHILS % (M) 13 % (0-4); ERYTHROBLAST% (NRBC) (M) 1 % (0-0); GIANT THROMBO% (M) 1 % (0-0); LYMPHOCYTES #M 0.1 10^3/ul (0.8-2.9); LYMPHOCYTES % (M) 1 % (15-51); METAMYELOCYTES #M 0.4 10^3/ul (0.0-0.0); METAMYELOCYTES %M 4 % (0-0); MICROCYTOSIS 1+ (0-0); MONOCYTE #M 0.3 10^3/ul (0.3-0.9); MONOCYTES % (M) 3 % (0-11); PLATELET ESTIMATE NORMAL; POLYCHROMASIA 3+ (0-0); REACTIVE LYMPHOCYTES #M 0.1 10^3/ul (0.0-0.0); REACTIVE LYMPHOCYTES% (M) 1 % (0-0); SEG NEUT #M 9.7 10^3/ul (1.6-7.5); SEGMENTED NEUTROPHILS (M) % 78 % (39-77); SMUDGE%M 2 % (0-0); STOMATOCYTES 1+ (0-0)
[2019-01-18 10:53] LABS: VANCOMYCIN,TROUGH 24.6 ug/ml (10.0-20.0)
[2019-01-18] MEDS: VANCOMYCIN 750 MG (PMX) 250 ML IVPB (11:00)
[2019-01-19] MEDS: ALBUMIN HUMAN 25% 100 ML IV ×2 (03:30→04:07)
[2019-01-19] MEDS: ACETAMINOPHEN 650MG/20.3ML CUP NGT (04:06)
[2019-01-19 04:17] LABS: WHITE BLOOD COUNT 17.1 10^3/ul (4.8-10.8)
[2019-01-19 04:17] LABS: ABNORMAL IP MESSAGE 1; HEMATOCRIT 21.9 % (42.0-52.0); MEAN CORPUSCULAR HEMOGLOBIN 28.5 pg (29.0-33.0); MEAN CORPUSCULAR HGB CONC 29.7 g/dl (32.0-37.0); MEAN CORPUSCULAR VOLUME 96.1 fl (82.0-101.0); MEAN PLATELET VOLUME 10.9 fl (7.4-10.4); NUCLEATED RED BLOOD CELLS% 1.6 /100WBC (0.0-0.0); PLATELET COUNT 278 10^3/UL (140-415); POSITIVE DIFF @See below; RED BLOOD COUNT 2.28 10^6/ul (4.70-6.10); RED CELL DISTRIBUTION WIDTH 18.6 % (11.5-14.5)
[2019-01-19 04:26] LABS: ADD MAN DIFF? YES; HEMOGLOBIN 6.5 g/dl (14.0-18.0)
[2019-01-19] MEDS: LANSOPRAZOLE 30 MG CAP GTB (05:11)
[2019-01-19] MEDS: AZTREONAM 2 GM in SOD CHLORIDE 0.9% 100 ML IVPB (05:11)
[2019-01-19 09:15] LABS: ANISOCYTOSIS 1+ (0-0); BAND NEUTROPHILS #M 1.5 10^3/ul (0.0-0.6); BAND NEUTROPHILS % (M) 9 % (0-4); EOSINOPHILS % (M) 1 % (0-7); GIANT THROMBO% (M) 3 % (0-0); HYPOCHROMASIA 1+ (0-0); LYMPHOCYTES #M 0.3 10^3/ul (0.8-2.9); LYMPHOCYTES % (M) 2 % (15-51); METAMYELOCYTES #M 0.3 10^3/ul (0.0-0.0); METAMYELOCYTES %M 2 % (0-0); MONOCYTE #M 0.6 10^3/ul (0.3-0.9); MONOCYTES % (M) 4 % (0-11); MYELOCYTES #M 0.5 10^3/ul (0.0-0.0); MYELOCYTES % (M) 3 % (0-0); OVALOCYTES 1+ (0-0); PLATELET ESTIMATE NORMAL; POIKILOCYTOSIS 1+ (0-0); POLYCHROMASIA 1+ (0-0); SEG NEUT #M 13.8 10^3/ul (1.6-7.5); SEGMENTED NEUTROPHILS (M) % 79 % (39-77); SMUDGE%M 8 % (0-0)
[2019-01-19] MEDS ORDERED: VANCOMYCIN 750 MG (PMX) 250 ML IVPB (11:00)
== END 2019-01-19 06:54 | disposition expired | DRG 23 ==
LOC: E/R 11:10 → REC 11:55 → ICU 18:13
PROC: 00C00ZZ Extirpation of Matter from Brain, Open Approach (ICD-10-PCS; principal; 2019-01-07 13:36)
PROC: 009600Z Drainage of Cerebral Ventricle with Drainage Device, Open Approach (ICD-10-PCS; 2019-01-07 13:36)
PROC: 00N00ZZ Release Brain, Open Approach (ICD-10-PCS; 2019-01-07 13:36)
PROC: 0BH17EZ Insertion of Endotracheal Airway into Trachea, Via Natural or Artificial Opening (ICD-10-PCS; 2019-01-07 13:36)
PROC: 5A1955Z Respiratory Ventilation, Greater than 96 Consecutive Hours (ICD-10-PCS; 2019-01-07 13:36)
PROC: 30233N1 Transfusion of Nonautologous Red Blood Cells into Peripheral Vein, Percutaneous Approach (ICD-10-PCS; 2019-01-07 13:36)
PROC: 30233R1 Transfusion of Nonautologous Platelets into Peripheral Vein, Percutaneous Approach (ICD-10-PCS; 2019-01-07 13:36)
DX: I61.8 Other nontraumatic intracerebral hemorrhage (principal); G93.5 Compression of brain; J18.8 Other pneumonia, unspecified organism; J96.01 Acute respiratory failure with hypoxia; D62 Acute posthemorrhagic anemia; G93.49 Other encephalopathy; N17.9 Acute kidney failure, unspecified; G81.94 Hemiplegia, unspecified affecting left nondominant side; I61.5 Nontraumatic intracerebral hemorrhage, intraventricular; I12.9 Hypertensive chronic kidney disease with stage 1 through stage 4 chronic kidney disease, or unspecified chronic kidney disease; R40.2432 Glasgow coma scale score 3-8, at arrival to emergency department; N18.3 Chronic kidney disease, stage 3 (moderate); R40.20 Unspecified coma; Z66 Do not resuscitate
CPT/HCPCS: 36415; 36430; 36600; 70450; 71045; 80048; 80053; 80061; 80202; 80307; 81003; 82550; 82553; 82803; 82962; 83036; 83735; 84100; 84295; 84484; 85025; 85610; 85730; 86644; 86850; 86900; 86901; 86920; 87040; 87081; 88304; 93005; 94002; 94003; 94770; 99291-25